=== PATIENT | male | born 1980 | race Two or more races ===

== ENCOUNTER 2022-02-08 15:20 | Emergency (ER) | payer MEDICAID ==
[~2022-02-08] VITALS: Ht 170.2 cm; Wt 81.0 kg
[~2022-02-08 15:20] MED LIST: NO HOME MEDS
[2022-02-08 15:27] VITALS: BP 100/85
== END 2022-02-08 19:14 | disposition left against medical advice (07) ==
LOC: ER 15:20
DX: S62.396A Other fracture of fifth metacarpal bone, right hand, initial encounter for closed fracture (principal); X58.XXXA Exposure to other specified factors, initial encounter; Y93.89 Activity, other specified; Y92.89 Other specified places as the place of occurrence of the external cause; Y99.8 Other external cause status
CPT/HCPCS: 73130; 99283

== ENCOUNTER 2022-02-13 17:26 | Emergency (ER) | payer MEDICAID ==
[~2022-02-13] VITALS: Ht 170.2 cm; Wt 88.0 kg
[2022-02-13 18:28] VITALS: BP 139/84
== END 2022-02-13 21:17 | disposition left against medical advice (07) ==
LOC: ER 17:26
DX: M79.645 Pain in left finger(s) (principal); Z53.21 Procedure and treatment not carried out due to patient leaving prior to being seen by health care provider